=== PATIENT | female | born 1970 | race Two or more races ===

== ENCOUNTER 2024-06-08 07:45 | Inpatient (IN) | payer OTHER ==
[~2024-06-08] VITALS: Ht 160 cm; Wt 53.5 kg
[2024-06-08] MEDS ORDERED: LOSARTAN POTASS50 MG (09:49)
[2024-06-08 09:50] VITALS: BP 130/80
[2024-06-08 10:15] LABS: URINE APPEARANCE Clear; URINE BILIRRUBIN Negative (NEGATIVE); URINE BLOOD Negative; URINE COLOR Yellow; URINE GLUCOSE Negative (NEGATIVE); URINE KETONE Negative (NEGATIVE); URINE LEUKOCYTE Moderate; URINE NITRATE Negative; URINE PROTEIN Negative (NEGATIVE); URINE UROBILINOGEN 0.2 E.U./dl
[2024-06-08 10:17] LABS: HEMATOCRIT 44.7 % (36.0-45.00); HEMOGLOBIN 15.1 g/dL (12.0-15.00); MEAN CELL VOLUME 90.5 fL (80.00-100.00); MEAN CORPUSCULAR HEMOGLOBIN 30.5 pg (27.00-32.0); MEAN CORPUSCULAR HGB CONC 33.8 g/dl (32.0-36.0); PLATELET COUNT 341 K/uL (150-450); RED BLOOD COUNT 4.94 M/uL (4.00-6.00); RED CELL DISTRIBUTION WIDTH 14.5 % (11.5-14.5)
[2024-06-08 10:20] LABS: URINE BACTERIA 1779.5 uL (0.0-1933); URINE EPITHELIAL CELLS 24.2 uL (0.0-38.8); URINE RBC 10.4 uL (0.0-20.8); URINE WBC 48.7 uL (0.0-23.2)
[2024-06-08 10:52] LABS: INR 0.97; PARTIAL THROMBOPLASTIN TIME 28.7 SECONDS (22.0-34.0); PROTHROMBIN TIME 10.6 SECONDS (9.0-11.5)
[2024-06-08 11:17] LABS: BILIRUBIN TOTAL 0.84 mg/dL (0.3-1.2); CALCIUM 9.7 mg/dL (8.5-10.1); CREATININE SERUM 0.75 mg/dL (0.55-1.02); GFR 80.53; GLOBULINA 3.6 G/DL (2.4-3.5); POTASSIUM 4.31 mEq/L (3.5-5.1); TOTAL PROTEIN 7.6 gm/dL (6.4-8.2)
[2024-06-15] MEDS ORDERED: CEFOXITIN SODIUM 2,000 MG VIAL IV ONE (11:07)
[2024-06-15] MEDS ORDERED: METRONIDAZOLE/SODIUM CHLORIDE 500 MG/100 ML PIGGYBACK IV ONE (11:51)
[2024-06-15] MEDS ORDERED: VISTASEAL DUAL APPICATOR 1 EACH APPL TOP ONE (13:29)
[2024-06-15] MEDS ORDERED: THROMBIN,HU/FIBRINOGEN/CALCIUM 10 ML SYRINGE TOP ONE (13:29)
[2024-06-15] MEDS ORDERED: ONDANSETRON HCL 2 MG/ML VIAL IV PRN (14:15)
[2024-06-15] MEDS ORDERED: KETOROLAC TROMETHAMINE 30 MG VIAL IV PRN (14:15)
[2024-06-15] MEDS ORDERED: MORPHINE SULFATE 4 MG/ML CARTRIDGE IV PRN (14:15)
[2024-06-15] MEDS ORDERED: RINGERS SOLUTION,LACTATED 1,000 ML IV SCH (14:15)
[2024-06-15] MEDS ORDERED: MORPHINE SULFATE 4 MG/ML VIAL IV ONE (14:50)
[2024-06-15] MEDS ORDERED: ONDANSETRON HCL 2 MG/ML VIAL IV ONE (14:50)
[2024-06-15] MEDS ORDERED: SIMETHICONE 125 MG CAPSULE PO ONE ×2 (17:47→17:51)
[2024-06-15] MEDS ORDERED: SIMETHICONE 125 MG CAPSULE PO SCH (18:00)
[2024-06-15 19:06] VITALS: BP 130/80
[2024-06-15 20:19] LABS: HEMATOCRIT 39.9 % (36.0-45.00); HEMOGLOBIN 12.9 g/dL (12.0-15.00); MEAN CELL VOLUME 92.1 fL (80.00-100.00); MEAN CORPUSCULAR HEMOGLOBIN 29.8 pg (27.00-32.0); MEAN CORPUSCULAR HGB CONC 32.3 g/dl (32.0-36.0); PLATELET COUNT 275 K/uL (150-450); RED BLOOD COUNT 4.33 M/uL (4.00-6.00); RED CELL DISTRIBUTION WIDTH 13.7 % (11.5-14.5)
[2024-06-15] MEDS ORDERED: FAMOTIDINE/PF 20 MG/2 ML VIAL IV SCH (21:00)
[2024-06-16 00:18] VITALS: BP 102/60
[2024-06-16 08:00] VITALS: BP 116/80
[2024-06-16] MEDS ORDERED: ACETAMINOPHEN-1 EAC2 PO (08:48)
[2024-06-16] MEDS ORDERED: NAPROXEN500 MG PO (08:49)
[2024-06-16] MEDS ORDERED: PEPCID AC20 MG PO (08:49)
== END 2024-06-16 09:33 | disposition home or self-care (01) | DRG 743 ==
LOC: O/R 06-15 06:53 → SURH 06-15 07:45 → OB/GYN 06-15 15:35
PROVIDERS: ADMIT Obstetrics & Gynecology; ATTEND Obstetrics & Gynecology
PROC: 0UT7FZZ Resection of Bilateral Fallopian Tubes, Via Natural or Artificial Opening With Percutaneous Endoscopic Assistance (ICD-10-PCS; 2024-06-15)
PROC: 0TJB8ZZ Inspection of Bladder, Via Natural or Artificial Opening Endoscopic (ICD-10-PCS; 2024-06-15)
PROC: 0UT9FZZ Resection of Uterus, Via Natural or Artificial Opening With Percutaneous Endoscopic Assistance (ICD-10-PCS; principal; 2024-06-15 12:45)
DX: D25.1 Intramural leiomyoma of uterus (principal); D25.2 Subserosal leiomyoma of uterus; D25.0 Submucous leiomyoma of uterus; R10.2 Pelvic and perineal pain; N81.11 Cystocele, midline; N95.0 Postmenopausal bleeding; N80.03 Adenomyosis of the uterus

== ENCOUNTER 2024-08-20 19:56 | Emergency (ER) | payer OTHER ==
[~2024-08-20] VITALS: Ht 160 cm; Wt 51.7 kg
[~2024-08-20 19:56] MED LIST: ACETAMINOPHEN-1 EAC2 PO; LOSARTAN POTASS50 MG; NAPROXEN500 MG PO; PEPCID AC20 MG PO
[2024-08-20] MEDS ORDERED: KETOROLAC TROMETHAMINE 30 MG VIAL ONE (20:38)
[2024-08-20] MEDS ORDERED: KETOROLAC TROMETHAMINE 30 MG VIAL IV ONE (20:45)
[2024-08-20 20:55] LABS: BASO % 0.2 % (0.1-1.2); EOS # 0.03 (0.04-0.54); EOS % 0.2 % (0.7-7.0); HEMATOCRIT 39.4 % (34.1-44.9); HEMOGLOBIN 13.4 g/dL (11.2-15.7); LYMPH # 2.19 (1.18-3.74); LYMPH % 15.9 % (19.3-53.1); MEAN CORPUSCULAR HEMOGLOBIN 29.6 pg (25.6-32.2); MONO # 0.59 (0.24-0.82); MONO % 4.3 % (4.7-12.5); NEUT # 10.88 (1.56-6.13); PLATELET COUNT 293 K/uL (163-369); RED BLOOD COUNT 4.53 M/uL (3.93-5.22); RED CELL DISTRIBUTION WIDTH 13.2 % (11.6-14.4)
[2024-08-20 21:14] LABS: ALBUMIN 3.7 gm/dL (3.4-5.0); BILIRUBIN TOTAL 0.26 mg/dL (0.3-1.2); CALCIUM 9.7 mg/dL (8.5-10.1); CREATININE SERUM 0.88 mg/dL (0.55-1.02); GFR 66.96; GLOBULINA 3.7 G/DL (2.4-3.5); POTASSIUM 3.93 mEq/L (3.5-5.1); TOTAL PROTEIN 7.4 gm/dL (6.4-8.2)
[2024-08-20 22:19] LABS: PH,URINE 5.5 (5.0-8.0); URINE APPEARANCE Clear; URINE BILIRRUBIN Negative (NEGATIVE); URINE BLOOD Moderate; URINE COLOR Yellow; URINE GLUCOSE Negative (NEGATIVE); URINE KETONE Negative (NEGATIVE); URINE LEUKOCYTE Moderate; URINE NITRATE Negative; URINE PROTEIN Negative (NEGATIVE); URINE UROBILINOGEN 0.2 E.U./dl
[2024-08-20 22:21] LABS: URINE BACTERIA 42.8 uL (0.0-1933); URINE CAST 3.09 uL (0.0-1.40); URINE EPITHELIAL CELLS 59.2 uL (0.0-38.8); URINE RBC 184.1 uL (0.0-20.8); URINE WBC 183.6 uL (0.0-23.2)
[2024-08-20] MEDS ORDERED: KETO10TA2 PO (22:29)
[2024-08-20] MEDS ORDERED: NORFLEX100MG PO (22:29)
[2024-08-20] MEDS ORDERED: BACTRIM DS TAB1 EACH PO (22:29)
[2024-08-20] MEDS ORDERED: PEPCID AC20 MG PO (22:29)
== END 2024-08-20 22:37 | disposition home or self-care (01) ==
LOC: ER 20:22
PROVIDERS: General Practice
DX: R10.2 Pelvic and perineal pain (principal); N81.11 Cystocele, midline